=== PATIENT | female | born 1985 | race Hispanic/Latino ===

== ENCOUNTER 2017-09-04 18:05 | Emergency (ER) | payer MEDICAID ==
[2017-09-04] MEDS ORDERED: KETOROLAC TROMETHAMINE 60 MG/2 ML VIAL ONE (18:31)
[2017-09-04] MEDS ORDERED: ORPHENADRINE CITRATE 30 MG/ML ML ONE (18:31)
== END 2017-09-04 19:02 | disposition home or self-care (01) ==
LOC: EDH 18:05
DX: M54.5 Low back pain (principal); Z98.890 Other specified postprocedural states
CPT/HCPCS: 96372 ×2; 99284; J1885; J2360

== ENCOUNTER 2017-10-07 19:33 | Emergency (ER) | payer MEDICAID ==
[2017-10-07] MEDS ORDERED: SODIUM CHLORIDE 0.9% 1000ML 1,000 ML IV ONE (19:46)
[2017-10-07 20:05] LABS: BASOPHILS % (AUTO) 0.2 % (0.0-5.0); EOSINOPHILS % (AUTO) 0.2 % (0.0-8.0); HEMATOCRIT 40.1 % (36-48); LYMPHOCYTES % (AUTO) 3.6 % (21.0-51.0); MEAN CORPUSCULAR HEMOGLOBIN 31.4 pg (27.0-33.0); MEAN CORPUSCULAR VOLUME 92.4 fL (79-99); MONOCYTES % (AUTO) 1.6 % (3.0-13.0); NEUTROPHILS % (AUTO) 94.4 % (40.0-77.0); PLATELET COUNT (AUTO) 202 K/uL (130-400); RED BLOOD CELL COUNT(AUTO) 4.34 MIL/uL (4.00-5.50); RED CELL DISTRIBUTION WIDTH 12.9 % (11.0-15.5); WHITE BLOOD COUNT (AUTO) 10.5 K/uL (4.8-10.8)
[2017-10-07] MEDS ORDERED: CEFTRIAXONE SODIUM 2 GM VIAL ONE (20:14)
[2017-10-07] MEDS ORDERED: ACETAMINOPHEN EXTRA STRENGTH 500 MG TABLET ONE (20:14)
[2017-10-07 20:17] LABS: INR 0.91 (0.85-1.15); PROTHROMBIN TIME 9.6 SEC (9.6-11.6)
[2017-10-07 20:20] LABS: CARBON DIOXIDE 27 mmol/L (21-32); CHLORIDE 102 mmol/L (101-111); CREATININE 0.7 mg/dL (0.5-1.5); GLOMERULAR FILTR. RATE CALC 104 mL/min (>60); GLUCOSE,RANDOM 165 mg/dL (70-105); POTASSIUM 4.1 mmol/L (3.5-5.1); SODIUM SERUM 137 mmol/L (136-145); UREA NITROGEN, BLOOD 13 mg/dL (7-18)
[2017-10-07 20:33] LABS: APPEARANCE,URINE Clear (CLEAR); BILIRUBIN,URINE Negative (NEGATIVE); COLOR,URINE Yellow (YELLOW); GLUCOSE, URINE (UA) Negative (NEGATIVE); KETONES,URINE Negative (NEGATIVE); LEUKOCYTE ESTERASE ,URINE Moderate (NEGATIVE); NITRATE,URINE Negative (NEGATIVE); OCCULT BLOOD,URINE Negative (NEGATIVE); PH,URINE 7.5 (5.0-8.0); PROTEIN,URINE Negative (NEGATIVE)
[2017-10-07 20:34] LABS: ALANINE AMINOTRANSFERASE 91 U/L (12-78); ALBUMIN 3.6 g/dL (3.5-5.0); ASPARTATE AMINOTRANSFERASE 38 U/L (10-37); BILIRUBIN,TOTAL 0.5 mg/dL (0.2-1.0); CREATINE KINASE MB < 0.5 ng/mL (0.5-3.6); CREATINE KINASE, TOTAL 73 U/L (21-232); MYOGLOBIN 21 ng/mL (10-92); TOTAL PROTEIN, SERUM 7.5 g/dL (6.0-8.3); TROPONIN I < 0.04 ng/mL (0.00-0.06)
[2017-10-07 20:40] LABS: BACTERIA,URINE Rare /HPF (None Seen); RBC,URINE None Seen /HPF (0-1)
[2017-10-07] MEDS ORDERED: KETOROLAC TROMETHAMINE 30MG/ML ONE (21:01)
== END 2017-10-07 22:04 | disposition home or self-care (01) ==
LOC: EDH 19:33
DX: J20.9 Acute bronchitis, unspecified (principal); E86.0 Dehydration
CPT/HCPCS: 36415; 71046; 80053; 81001; 82550; 82553; 83605; 83874; 84484; 85025; 85610; 85730; 87040 ×2; 87088; 87186; 87804 ×2; 93005; 96374; 96375; 99285; J0696; J1885; J7030

== ENCOUNTER 2018-01-06 11:27 | Emergency (ER) | payer MEDICAID ==
[2018-01-06 12:53] LABS: RAPID GROUP A STREP NEGATIVE (NEGATIVE)
== END 2018-01-06 13:46 | disposition home or self-care (01) ==
LOC: EDH 11:27
DX: J06.9 Acute upper respiratory infection, unspecified (principal); Z98.890 Other specified postprocedural states; Z79.899 Other long term (current) drug therapy
CPT/HCPCS: 81025; 87804; 87880

== ENCOUNTER 2018-06-13 10:16 | Emergency (ER) | payer MEDICAID | END 2018-06-13 11:11 | disposition home or self-care (01) | LOC: EDH 10:16 | DX: L02.214 Cutaneous abscess of groin (principal) ==

== ENCOUNTER 2019-08-24 14:04 | Emergency (ER) | payer MEDICAID ==
[2019-08-24] MEDS ORDERED: DIAZEPAM 5 MG TABLET ONE (15:37)
[2019-08-24] MEDS ORDERED: LIDOCAINE 5% TOPICAL PATCH TP ONE (15:37)
[2019-08-24] MEDS ORDERED: TRAMADOL HCL 50 MG TABLET ONE (15:37)
== END 2019-08-24 16:17 | disposition home or self-care (01) ==
LOC: EDH 14:04
DX: M62.830 Muscle spasm of back (principal); Z98.890 Other specified postprocedural states

== ENCOUNTER → 2022-01-05 | Outpatient (CLI) | payer MEDICAID, OTHER ==
[~2022-01-05] VITALS: Ht 12.7 cm; Wt 154.7 kg
== END | disposition home or self-care (01) ==
LOC: DTH 15:25
PROVIDERS: ATTEND Surgery
DX: E66.01 Morbid (severe) obesity due to excess calories (principal); K76.0 Fatty (change of) liver, not elsewhere classified; G47.33 Obstructive sleep apnea (adult) (pediatric); Z71.3 Dietary counseling and surveillance; Z68.43 Body mass index [BMI] 50.0-59.9, adult
CPT/HCPCS: 97802

== ENCOUNTER → 2022-02-02 | Outpatient (CLI) | payer OTHER | END | disposition home or self-care (01) | LOC: DTH 14:26 | PROVIDERS: ATTEND Surgery | DX: Z71.3 Dietary counseling and surveillance (principal); K76.0 Fatty (change of) liver, not elsewhere classified; G47.33 Obstructive sleep apnea (adult) (pediatric); R73.03 Prediabetes; E66.01 Morbid (severe) obesity due to excess calories; Z68.43 Body mass index [BMI] 50.0-59.9, adult | CPT/HCPCS: 97803 ==

== ENCOUNTER → 2022-05-03 | Outpatient (CLI) | payer OTHER | END | disposition home or self-care (01) | LOC: DTH 14:16 | PROVIDERS: ATTEND Surgery | DX: Z71.3 Dietary counseling and surveillance (principal); K76.0 Fatty (change of) liver, not elsewhere classified; E66.01 Morbid (severe) obesity due to excess calories; G47.33 Obstructive sleep apnea (adult) (pediatric); R73.03 Prediabetes; Z68.43 Body mass index [BMI] 50.0-59.9, adult | CPT/HCPCS: 97803 ==

== ENCOUNTER → 2022-05-16 | Outpatient (CLI) | payer OTHER | END | disposition home or self-care (01) | LOC: DTH 11:25 | PROVIDERS: ATTEND Surgery | DX: Z71.3 Dietary counseling and surveillance (principal); E66.01 Morbid (severe) obesity due to excess calories; K76.0 Fatty (change of) liver, not elsewhere classified; R73.03 Prediabetes; G47.33 Obstructive sleep apnea (adult) (pediatric); Z68.43 Body mass index [BMI] 50.0-59.9, adult | CPT/HCPCS: 97803 ==

== ENCOUNTER 2022-11-14 09:57 | Day surgery (SDC) | payer MEDICAID ==
[2022-11-14] VITALS (8 sets, daily range): BP systolic 102–126; BP diastolic 61–74
[~2022-11-14] VITALS: Ht 167.6 cm; Wt 179.2 kg
[~2022-11-14 09:57] MED LIST: 0.9%NACL 1000ML 1,000 ML IV ONE; DULA0.75 SQ; INSLAN SQ; METF750T46 PO; MONT-39 PO
[2022-11-14] MEDS ORDERED: PROPOFOL 10 MG/ML 20ML VIAL IV ONE (12:11)
[2022-11-14] MEDS ORDERED: LIDOCAINE HCL 1% 20 ML VIAL ONE (12:12)
[2022-11-14] MEDS ORDERED: PANT20TA18 PO (12:52)
== END 2022-11-14 13:51 | disposition home or self-care (01) ==
LOC: DAH 09:57 → ENDO 09:57
PROVIDERS: ATTEND Internal Medicine Gastroenterology
DX: Z01.818 Encounter for other preprocedural examination (principal); Z20.822 Contact with and (suspected) exposure to COVID-19; E66.01 Morbid (severe) obesity due to excess calories; K44.9 Diaphragmatic hernia without obstruction or gangrene; K29.50 Unspecified chronic gastritis without bleeding; E11.9 Type 2 diabetes mellitus without complications; Z79.899 Other long term (current) drug therapy; Z90.49 Acquired absence of other specified parts of digestive tract; Z98.891 History of uterine scar from previous surgery; Z86.16 Personal history of COVID-19; Z82.49 Family history of ischemic heart disease and other diseases of the circulatory system; Z83.3 Family history of diabetes mellitus; Z83.42 Family history of familial hypercholesterolemia; Z83.430 Family history of elevated lipoprotein(a); Z68.44 Body mass index [BMI] 60.0-69.9, adult
CPT/HCPCS: 87426; 82948; 81025; 88305; 88342; 43239; J7030 ×2; J3490; A4620; A4215 ×2; A4223; A7002; A4222; A4221; A4663; A4606; 43235; J2704

== ENCOUNTER → 2023-03-13 | Outpatient (CLI) | payer OTHER ==
[~2023-03-13] MED LIST changes: -0.9%NACL 1000ML 1,000 ML IV ONE; +PANT20TA18 PO
== END | disposition home or self-care (01) ==
LOC: RAH 15:31
PROVIDERS: ATTEND Internal Medicine
DX: M54.9 Dorsalgia, unspecified (principal); E66.9 Obesity, unspecified
CPT/HCPCS: 72070